=== PATIENT | male | born 1980 | race Caucasian/White ===

== ENCOUNTER 2018-07-02 22:56 | Emergency (ER) | payer OTHER ==
[~2018-07-02] VITALS: Ht 180.3 cm; Wt 101.2 kg
[~2018-07-02 22:56] MED LIST: TRAZODONE HCL50 MG PO
[2018-07-02] MEDS ORDERED: ZOLOFT25 MG PO (23:12)
== END 2018-07-02 23:35 | disposition home or self-care (01) ==
LOC: ED 22:56
DX: S60.222A Contusion of left hand, initial encounter (principal); W23.0XXA Caught, crushed, jammed, or pinched between moving objects, initial encounter; F32.9 Major depressive disorder, single episode, unspecified; Z79.899 Other long term (current) drug therapy
CPT/HCPCS: 73130; 99283